=== PATIENT | female | born 1995 | race Caucasian/White ===

== ENCOUNTER 2017-03-03 11:15 | Day surgery (SDC) | payer MEDICAID ==
[2017-02-28 10:29] VITALS: BMI 25.0
[~2017-03-03 11:15] MED LIST: LACTATED RINGERS 1,000 ML IV SCH
[2017-03-03] MEDS ORDERED: LIDOCAINE 1% 20 ML VIAL (10MG/ML) FOR IV START INTRADERMA ONE (12:15)
[2017-03-03 12:17] VITALS: TEMP 97.8
[2017-03-03] MEDS ORDERED: PROPOFOL 10 MG/ML 20 ML VIAL IV ONE (12:18)
[2017-03-03 13:07] VITALS: BP 115/73; PULSE 65; RESP 18
--- NOTE | 2017-03-03 13:12 | P.PCN ---
Date of Procedure: 03/03/17 Preoperative Diagnosis: abdominal pain and diarrhea Postoperative Diagnosis: same mild gastritis Procedure(s) Performed: EGD with multiple biopsies colonoscopy with multiple biopsies Anesthesia: MAC Surgeon: Vitaly Kerr Pathology: other (Multiple biopsies of duodenum gastric antrum terminal ileum descending colon) Condition: stable Disposition: same day Description of Procedure: Patient was brought into the Endo suite remained in the left lateral decubitus position underwent sedation per department of anesthesia timeout was performed correct patient correct procedure correct site was verified. The endoscope was advanced down the oropharynx into the esophagus under direct visualization down into the stomach first part second portion of the duodenum. The scope was insufflated withdrawn being sure to inspect the first and second part of the duodenum which were without abnormality biopsies taken of the first and second portion of the duodenum. The scope was then withdrawn into the gastric antrum mild gastritis is noted biopsy of this was taken the scope was retroflexed and abnormalities were noted. The scope was then slowly withdrawn GE junction was visualized no other maladies are noted. The scope was then completely withdrawn colonoscope was then placed through the rectum to the cecum with ease the terminal ileum was intubated and biopsies of the terminal ileum were taken. The scope was then slowly withdrawn from the cecum being sure to visualize all nagel on the way out biopsy of the descending colon was taken there is no other abnormality seen. The scope was retroflexed in the rectum no abnormalities are seen. Patient tolerated the procedure well there is no apparent complications Plan - Discharge Summary New Discharge Prescriptions: No Action No Known Home Medications [No Known Home Medications] Discharge Medication List No Known Home Medications [No Known Home Medications] 02/28/17 [History] Follow up Appointment(s)/Referral(s): Vitaly Kerr DO [Doctor of Osteopathic Medicine] - As Needed Patient Instructions/Handouts: *[facility] - (Anesthesia) Endoscopy Discharge Instructions, Colonoscopy (DC), Upper Endoscopy (DC)
== END 2017-03-03 13:19 | disposition home or self-care (01) ==
LOC: ORWHC2ENDO 11:15
PROVIDERS: ATTEND Student in an Organized Health Care Education/Training Program
DX: K29.50 Unspecified chronic gastritis without bleeding (principal); R19.7 Diarrhea, unspecified; R19.4 Change in bowel habit; K21.9 Gastro-esophageal reflux disease without esophagitis
CPT/HCPCS: 81025; 88305; 88342; 45380; 43239; J2704

== ENCOUNTER 2017-07-01 11:18 | Emergency (ER) | payer MEDICAID ==
--- NOTE | 2017-07-01 11:56 | ED ---
GI Bleed HPI - General Chief complaint: GI Bleed Stated complaint: RECTAL BLEEDING Time Seen by Provider: 07/01/17 11:30 Source: patient, RN notes reviewed Mode of arrival: ambulatory Limitations: no limitations - History of Present Illness Initial comments: This is a 21-year-old female with a benign past medical history who states that she started developing bright red blood per rectum with some clots. She states she has some similar to this back in February of last year she had EGD and colonoscopy done that was negative. She does not think she has hemorrhoids she just finished her menstrual period several days ago. She states that look like. Blood but really she was not having any vaginal bleeding. She has no fevers chills nausea vomiting sweats or other symptoms at this time she states she did have some mild lower abdominal discomfort very minimal. 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 Of note she states she has lost about 100 pounds last year because she does not feel like eating very much also she states she's been seemingly bruising easier just from leaning against machinery that she operates at work. complaint: blood on toilet paper, gross hematochezia - Related Data Home Medications Medication Instructions Recorded Confirmed FLUoxetine HCL [PROzac] 40 mg PO DAILY 07/01/17 07/01/17 Norgestimate-Ethinyl Estradiol 1 tab PO DAILY 07/01/17 07/01/17 [Ortho Tri-Cyclen 28 Tablet] Previous Rx's Medication Instructions Recorded Hydrocortisone [Anusol-Hc] 1 applic RECTAL BID #30 gm 07/01/17 Allergies Allergy/AdvReac Type Severity Reaction Status Date / Time No Known Allergies Allergy Verified 07/01/17 11:28 Review of Systems ROS Statement: Those systems with pertinent positive or pertinent negative responses have been documented in the HPI. ROS Other: All systems not noted in ROS Statement are negative. Past Medical History Past Medical History: No Reported History, Skin Disorder Additional Past Medical History / Comment(s): HAS BEEN HAVING CHRONIC ABD. PAIN AND HAS LOST 90 POUNDS OVER THE LAST YEAR WITHOUT TRYING TO. PSORIASIS History of Any Multi-Drug Resistant Organisms: None Reported Past Surgical History: No Surgical Hx Reported Additional Past Surgical History / Comment(s): colonoscopy Past Anesthesia/Blood Transfusion Reactions: Motion Sickness Additional Past Anesthesia/Blood Transfusion Reaction / Comment(s): NO PRIOR SX HX Past Psychological History: No Psychological Hx Reported Smoking Status: Current every day smoker Past Alcohol Use History: Occasional Past Drug Use History: None Reported - Past Family History Mother Family Medical History: No Reported History General Exam - General Exam Comments Initial Comments: This is a well-developed well-nourished awake alert oriented x 3 female Limitations: no limitations General appearance: alert, in no apparent distress Head exam: Present: atraumatic, normocephalic, normal inspection Eye exam: Present: normal appearance, PERRL, EOMI. Absent: scleral icterus, conjunctival injection, periorbital swelling ENT exam: Present: normal exam, mucous membranes moist Neck exam: Present: normal inspection. Absent: tenderness, meningismus, lymphadenopathy Respiratory exam: Present: normal lung sounds bilaterally. Absent: respiratory distress, wheezes, rales, rhonchi, stridor Cardiovascular Exam: Present: regular rate, normal rhythm, normal heart sounds. Absent: systolic murmur, diastolic murmur, rubs, gallop, clicks GI/Abdominal exam: Present: soft, normal bowel sounds. Absent: distended, tenderness, guarding, rebound, rigid, bruit, pulsatile mass, hernia Rectal exam: Present: hemorrhoids, tenderness (Tenderness at the area of the above-mentioned hemorrhoid), other (There is a very small bleeding hemorrhoid at approximately the 6:00 o'clock location). Absent: decreased rectal tone, black stool, bloody stool, fecal impaction, mass Extremities exam: Present: normal inspection, full ROM, normal capillary refill , other (Normally inspection except for some bruising noted to the lower extremities bilaterally and anteriorly consistent with a history given by the patient. Various stages of healing). Absent: tenderness, pedal edema, joint swelling, calf tenderness Back exam: Present: normal inspection Neurological exam: Present: alert, oriented X3, CN II-XII intact Psychiatric exam: Present: normal affect, normal mood Skin exam: Present: warm, dry, intact, normal color. Absent: rash Course Vital Signs 07/01/17 11:21 Temperature 98.4 F Pulse Rate 63 Respiratory 20 Rate Blood Pressure 123/64 O2 Sat by Pulse 100 Oximetry - Reevaluation(s) Reevaluation #1: 07/01/17 11:56 The entire exam was done with a female nurse, Eduardo, saravanan Medical Decision Making - Medical Decision Making I did review the lab work with the patient and did discuss the findings with her the presentation is consistent with a bleeding hemorrhoid. We placed on appropriate medication she is advised regarding sitz baths. She'll follow-up with her doctor and return when necessary - Lab Data Result diagrams: 07/01/17 11:35 07/01/17 11:35 Lab Results 07/01/17 07/01/17 07/01/17 Range/Units 11:35 11:35 11:35 WBC 7.7 (3.8-10.6) k/uL RBC 4.97 (3.80-5.40) m/uL Hgb 14.1 (11.4-16.0) gm/dL Hct 41.8 (34.0-46.0) % MCV 84.3 (80.0-100.0) fL MCH 28.4 (25.0-35.0) pg MCHC 33.7 (31.0-37.0) g/dL RDW 12.5 (11.5-15.5) % Plt Count 257 (150-450) k/uL Neutrophils % 63 % Lymphocytes % 29 % Monocytes % 4 % Eosinophils % 1 % Basophils % 0 % Neutrophils # 4.8 (1.3-7.7) k/uL Lymphocytes # 2.3 (1.0-4.8) k/uL Monocytes # 0.3 (0-1.0) k/uL Eosinophils # 0.1 (0-0.7) k/uL Basophils # 0.0 (0-0.2) k/uL PT 10.6 (9.0-12.0) sec INR 1.1 (<1.2) APTT 24.8 (22.0-30.0) sec Sodium 139 (137-145) mmol/L Potassium 4.0 (3.5-5.1) mmol/L Chloride 105 (98-107) mmol/L Carbon Dioxide 26 (22-30) mmol/L Anion Gap 8 mmol/L BUN 22 H (7-17) mg/dL Creatinine 0.58 (0.52-1.04) mg/dL Est GFR (CKD-EPI)AfAm >90 (>60 ml/min/1.73 sqM) Est GFR (CKD-EPI)NonAf >90 (>60 ml/min/1.73 sqM) Glucose 105 H (74-99) mg/dL Calcium 9.4 (8.4-10.2) mg/dL Magnesium 2.0 (1.6-2.3) mg/dL Total Bilirubin 0.4 (0.2-1.3) mg/dL AST 20 (14-36) U/L ALT 23 (9-52) U/L Alkaline Phosphatase 62 (38-126) U/L Total Protein 7.1 (6.3-8.2) g/dL Albumin 4.1 (3.5-5.0) g/dL Amylase 45 (30-110) U/L Lipase 99 (23-300) U/L TSH 1.390 (0.465-4.680) mIU/L Disposition Clinical Impression: Bleeding hemorrhoid Disposition: HOME SELF-CARE Condition: Good Instructions: Hemorrhoids (ED) Prescriptions: Hydrocortisone [Anusol-Hc] 1 applic RECTAL BID #30 gm Referrals: Myrtle Gutierrez MD [Primary Care Provider] - 1-2 days
[2017-07-01 12:04] LABS: Basophils % (A) 0 %; Eosinophils # (A) 0.1 k/uL (0-0.7); Eosinophils % (A) 1 %; HCT 41.8 % (34.0-46.0); HGB 14.1 gm/dL (11.4-16.0); Lymphocytes # (A) 2.3 k/uL (1.0-4.8); Lymphocytes % (A) 29 %; MCH 28.4 pg (25.0-35.0); MCHC 33.7 g/dL (31.0-37.0); MCV 84.3 fL (80.0-100.0); Monocytes # (A) 0.3 k/uL (0-1.0); Monocytes % (A) 4 %; Neutrophils # (A) 4.8 k/uL (1.3-7.7); Neutrophils % (A) 63 %; Platelet Count 257 k/uL (150-450); RBC 4.97 m/uL (3.80-5.40); RDW 12.5 % (11.5-15.5); WBC 7.7 k/uL (3.8-10.6)
[2017-07-01 12:11] LABS: INR 1.1 (<1.2); Partial Thromboplastin Time 24.8 sec (22.0-30.0); Prothrombin Time 10.6 sec (9.0-12.0)
[2017-07-01 12:16] LABS: ALT 23 U/L (9-52); AST 20 U/L (14-36); Albumin 4.1 g/dL (3.5-5.0); Alkaline Phosphatase 62 U/L (38-126); Amylase 45 U/L (30-110); Anion Gap 8 mmol/L; Blood Urea Nitrogen 22 mg/dL (7-17); Calcium 9.4 mg/dL (8.4-10.2); Carbon Dioxide 26 mmol/L (22-30); Chloride 105 mmol/L (98-107); Glucose 105 mg/dL (74-99); Lipase 99 U/L (23-300); Sodium 139 mmol/L (137-145); Total Bilirubin 0.4 mg/dL (0.2-1.3); Total Protein 7.1 g/dL (6.3-8.2)
[2017-07-01 13:05] VITALS: BP 132/69; PULSE 69; RESP 18; TEMP 97.7
== END 2017-07-01 13:05 | disposition home or self-care (01) ==
LOC: EC 11:18
DX: K64.9 Unspecified hemorrhoids (principal); S80.12XD Contusion of left lower leg, subsequent encounter; S80.11XD Contusion of right lower leg, subsequent encounter; F17.200 Nicotine dependence, unspecified, uncomplicated; Z79.3 Long term (current) use of hormonal contraceptives; Z79.899 Other long term (current) drug therapy; X50.1XXD Overexertion from prolonged static or awkward postures, subsequent encounter
CPT/HCPCS: 36415; 80053; 82150; 83690; 83735; 84443; 85025; 85610; 85730; 99284

== ENCOUNTER 2017-07-04 13:52 | Emergency (ER) | payer MEDICAID ==
[2017-07-04 14:40] LABS: Basophils % (A) 0 %; Eosinophils # (A) 0.1 k/uL (0-0.7); Eosinophils % (A) 1 %; HCT 41.1 % (34.0-46.0); HGB 13.9 gm/dL (11.4-16.0); Lymphocytes # (A) 1.2 k/uL (1.0-4.8); Lymphocytes % (A) 9 %; MCH 28.7 pg (25.0-35.0); MCHC 33.9 g/dL (31.0-37.0); MCV 84.7 fL (80.0-100.0); Monocytes # (A) 0.6 k/uL (0-1.0); Monocytes % (A) 5 %; Neutrophils # (A) 11.4 k/uL (1.3-7.7); Neutrophils % (A) 85 %; Platelet Count 241 k/uL (150-450); RBC 4.85 m/uL (3.80-5.40); RDW 12.4 % (11.5-15.5); WBC 13.4 k/uL (3.8-10.6)
[2017-07-04 14:48] LABS: ALT 25 U/L (9-52); AST 23 U/L (14-36); Albumin 4.5 g/dL (3.5-5.0); Alkaline Phosphatase 69 U/L (38-126); Amylase 35 U/L (30-110); Anion Gap 9 mmol/L; Blood Urea Nitrogen 20 mg/dL (7-17); Calcium 9.6 mg/dL (8.4-10.2); Carbon Dioxide 27 mmol/L (22-30); Chloride 100 mmol/L (98-107); Glucose 87 mg/dL (74-99); Lipase 44 U/L (23-300); Potassium 3.9 mmol/L (3.5-5.1); Sodium 136 mmol/L (137-145); Total Bilirubin 1.3 mg/dL (0.2-1.3); Total Protein 7.5 g/dL (6.3-8.2)
--- NOTE | 2017-07-04 15:30 | ED ---
General Adult HPI - General Chief complaint: Abdominal Pain Stated complaint: sore throat/abdominal pain Time Seen by Provider: 07/04/17 15:01 Source: patient, RN notes reviewed Mode of arrival: ambulatory Limitations: no limitations - History of Present Illness Initial comments: Comfortably appearing 21-year-old female presents to the emergency department for a chief complaint of sore throat and abdominal pain. Patient states she noticed her ears throat was sore this morning and that her tonsils were enlarged. She states she went to work and couple hours later she started having diffuse abdominal pain. Patient denies any cough, congestion, or shortness of breath. She admits to ear pain but states this is probably due to her gauges in the earlobes. Patient states she has been drinking fluids. Patient denies any vomiting or diarrhea but states she has been slightly nauseous intermittently. Patient is not nauseous at the time of exam. She describes her abdominal pain as a diffuse sharp and crampy pain. Patient states she had a very small hard bowel movement this morning. Patient states she also has some pain in her back bilaterally that has progressed throughout the day. Patient has a history of chronic abdominal pain over the past 2 years along with a 90 pound weight loss in the past year. She has had an EGD and colonoscopy both with biopsies in February 2017 because of this. No abnormal findings on these procedures and she was diagnosed with mild gastritis. Patient states she is not sure if she has had UTIs or kidney stones in the past. - Related Data Home Medications Medication Instructions Recorded Confirmed FLUoxetine HCL [PROzac] 40 mg PO DAILY 07/01/17 07/04/17 Norgestimate-Ethinyl Estradiol 1 tab PO DAILY 07/04/17 07/04/17 [Trinessa Tablet] Previous Rx's Medication Instructions Recorded Amoxicillin 875 mg PO Q12HR #20 tablet 07/04/17 Allergies Allergy/AdvReac Type Severity Reaction Status Date / Time No Known Allergies Allergy Verified 07/04/17 15:07 Review of Systems ROS Statement: Those systems with pertinent positive or pertinent negative responses have been documented in the HPI. ROS Other: All systems not noted in ROS Statement are negative. Past Medical History Past Medical History: No Reported History, Skin Disorder Additional Past Medical History / Comment(s): HAS BEEN HAVING CHRONIC ABD. PAIN AND HAS LOST 90 POUNDS OVER THE LAST YEAR WITHOUT TRYING TO. PSORIASIS History of Any Multi-Drug Resistant Organisms: None Reported Past Surgical History: No Surgical Hx Reported Additional Past Surgical History / Comment(s): colonoscopy Past Anesthesia/Blood Transfusion Reactions: Motion Sickness Additional Past Anesthesia/Blood Transfusion Reaction / Comment(s): NO PRIOR SX HX Past Psychological History: Anxiety, Depression Smoking Status: Current every day smoker Past Alcohol Use History: Occasional Past Drug Use History: None Reported - Past Family History Mother Family Medical History: No Reported History General Exam Limitations: no limitations Eye exam: Present: normal appearance, PERRL, EOMI. Absent: scleral icterus, conjunctival injection, periorbital swelling ENT exam: Present: mucous membranes moist, TM's normal bilaterally, normal external ear exam (patient has gauges present in BL earlobes). Absent: normal oropharynx (Mild exudates noted on tonsils bilaterally) Neck exam: Present: full ROM, lymphadenopathy (Mild submandibular lymphadenopathy with minimal tenderness.). Absent: meningismus Respiratory exam: Present: normal lung sounds bilaterally. Absent: respiratory distress, wheezes, rales, rhonchi, stridor Cardiovascular Exam: Present: regular rate, normal rhythm, normal heart sounds. Absent: systolic murmur, diastolic murmur, rubs, gallop, clicks GI/Abdominal exam: Present: soft, tenderness (Tenderness to palpation in the left lower quadrant.), normal bowel sounds. Absent: distended, guarding, rebound, rigid Back exam: Present: full ROM, CVA tenderness (L) (Mild left CVA tenderness) Neurological exam: Present: alert, oriented X3, CN II-XII intact Psychiatric exam: Present: normal affect, normal mood Course Vital Signs 07/04/17 07/04/17 14:07 16:16 Temperature 98.6 F Pulse Rate 71 82 Respiratory 17 18 Rate Blood Pressure 119/66 119/64 O2 Sat by Pulse 100 99 Oximetry Medical Decision Making - Medical Decision Making 21-year-old female presents the emergency department today for a chief complaint of abdominal pain and sore throat. The symptoms began this morning. Vital signs all within normal limits. No fever time of presentation. On exam tonsils appear enlarged with mild exudate. No other abnormalities noted on ENT exam. Patient denies cough congestion or fevers. Patient also has crampy sharp abdominal pain diffusely throughout her abdomen. Patient has a history of chronic abdominal pain and an EGD and colonoscopy were done February 2017 and were found to be normal. Exam reveals tenderness to palpation in the left lower quadrant and slight left CVA tenderness. Bowel sounds within normal limits. Vitals are stable: Temp 98.6 pulse 71 respirations 17 and blood pressure 119/66 pulse ox 100 on room air CBC revealed a mild white blood cell count elevation of 13.4 neutrophils 11.4. CMP results unremarkable. Urine hCG detected. KUB showed no acute abnormalities. Patient was positive for group A strep. Patient was educated that abdominal pain could be due to strep throat. However On reevaluation patient complains of pain radiating from the back. And does have RBCs on UA. CT noncontrast was ordered. CT showed no significant abnormality of the kidneys or other organs. A right ovarian cystic lesion that is slightly smaller than prior exam is noted. On reevaluation after CT patient states abdominal pain does feel much better. She states she felt her abdomen "was moving around vociferously down" but now it feels much better. Her back feels better as well. She will be given amoxicillin to treat the strep throat. She will follow up with primary care in 1-2 days for abdominal pain. She will return to the emergency department if she notices abdominal pain worsening. - Lab Data Result diagrams: 07/04/17 14:23 07/04/17 14:23 Lab Results 07/04/17 07/04/17 07/04/17 Range/Units 14:23 14:23 15:10 WBC 13.4 H (3.8-10.6) k/uL RBC 4.85 (3.80-5.40) m/uL Hgb 13.9 (11.4-16.0) gm/dL Hct 41.1 (34.0-46.0) % MCV 84.7 (80.0-100.0) fL MCH 28.7 (25.0-35.0) pg MCHC 33.9 (31.0-37.0) g/dL RDW 12.4 (11.5-15.5) % Plt Count 241 (150-450) k/uL Neutrophils % 85 % Lymphocytes % 9 % Monocytes % 5 % Eosinophils % 1 % Basophils % 0 % Neutrophils # 11.4 H (1.3-7.7) k/uL Lymphocytes # 1.2 (1.0-4.8) k/uL Monocytes # 0.6 (0-1.0) k/uL Eosinophils # 0.1 (0-0.7) k/uL Basophils # 0.0 (0-0.2) k/uL Sodium 136 L (137-145) mmol/L Potassium 3.9 (3.5-5.1) mmol/L Chloride 100 (98-107) mmol/L Carbon Dioxide 27 (22-30) mmol/L Anion Gap 9 mmol/L BUN 20 H (7-17) mg/dL Creatinine 0.62 (0.52-1.04) mg/dL Est GFR (CKD-EPI)AfAm >90 (>60 ml/min/1.73 sqM) Est GFR (CKD-EPI)NonAf >90 (>60 ml/min/1.73 sqM) Glucose 87 (74-99) mg/dL Calcium 9.6 (8.4-10.2) mg/dL Total Bilirubin 1.3 (0.2-1.3) mg/dL AST 23 (14-36) U/L ALT 25 (9-52) U/L Alkaline Phosphatase 69 (38-126) U/L Total Protein 7.5 (6.3-8.2) g/dL Albumin 4.5 (3.5-5.0) g/dL Amylase 35 (30-110) U/L Lipase 44 (23-300) U/L Urine Color Yellow Urine Appearance Cloudy H (Clear) Urine pH 5.5 (5.0-8.0) Ur Specific [place] 1.025 (1.001-1.035) Urine Protein 1+ H (Negative) Urine Glucose (UA) Negative (Negative) Urine Ketones 1+ H (Negative) Urine Blood Negative (Negative) Urine Nitrite Negative (Negative) Urine Bilirubin Negative (Negative) Urine Urobilinogen 2.0 (<2.0) mg/dL Ur Leukocyte Esterase Moderate H (Negative) Urine RBC 10 H (0-5) /hpf Ur Squamous Epith Cells 29 H (0-4) /hpf Urine Bacteria Rare H (None) /hpf Urine Mucus Many H (None) /hpf Urine HCG, Qual (Not Detectd) Group A Strep Rapid (Negative) 07/04/17 07/04/17 Range/Units 15:10 15:30 WBC (3.8-10.6) k/uL RBC (3.80-5.40) m/uL Hgb (11.4-16.0) gm/dL Hct (34.0-46.0) % MCV (80.0-100.0) fL MCH (25.0-35.0) pg MCHC (31.0-37.0) g/dL RDW (11.5-15.5) % Plt Count (150-450) k/uL Neutrophils % % Lymphocytes % % Monocytes % % Eosinophils % % Basophils % % Neutrophils # (1.3-7.7) k/uL Lymphocytes # (1.0-4.8) k/uL Monocytes # (0-1.0) k/uL Eosinophils # (0-0.7) k/uL Basophils # (0-0.2) k/uL Sodium (137-145) mmol/L Potassium (3.5-5.1) mmol/L Chloride (98-107) mmol/L Carbon Dioxide (22-30) mmol/L Anion Gap mmol/L BUN (7-17) mg/dL Creatinine (0.52-1.04) mg/dL Est GFR (CKD-EPI)AfAm (>60 ml/min/1.73 sqM) Est GFR (CKD-EPI)NonAf (>60 ml/min/1.73 sqM) Glucose (74-99) mg/dL Calcium (8.4-10.2) mg/dL Total Bilirubin (0.2-1.3) mg/dL AST (14-36) U/L ALT (9-52) U/L Alkaline Phosphatase (38-126) U/L Total Protein (6.3-8.2) g/dL Albumin (3.5-5.0) g/dL Amylase (30-110) U/L Lipase (23-300) U/L Urine Color Urine Appearance (Clear) Urine pH (5.0-8.0) Ur Specific [place] (1.001-1.035) Urine Protein (Negative) Urine Glucose (UA) (Negative) Urine Ketones (Negative) Urine Blood (Negative) Urine Nitrite (Negative) Urine Bilirubin (Negative) Urine Urobilinogen (<2.0) mg/dL Ur Leukocyte Esterase (Negative) Urine RBC (0-5) /hpf Ur Squamous Epith Cells (0-4) /hpf Urine Bacteria (None) /hpf Urine Mucus (None) /hpf Urine HCG, Qual Not Detected (Not Detectd) Group A Strep Rapid Positive A (Negative) Disposition Clinical Impression: Strep throat Disposition: HOME SELF-CARE Condition: Good Instructions: Strep Throat (ED) Additional Instructions: Please return to the emergency department if abdominal pain or other symptoms worsen. Please follow up with primary care provider in 1-2 days for abdominal pain and strep throat. Please take amoxicillin as directed and finish dose. Prescriptions: Amoxicillin 875 mg PO Q12HR #20 tablet Referrals: Myrtle Gutierrez MD [Primary Care Provider] - 1-2 days Time of Disposition: 17:20
[2017-07-04] MEDS ORDERED: SODIUM CHLORIDE 0.9% 1,000 ML IV STA (15:41)
[2017-07-04 15:44] LABS: Appearance,Urine Cloudy (Clear); Bacteria,Urine Rare /hpf; Bilirubin,Urine Negative (Negative); Blood,Urine Negative (Negative); Color,Urine Yellow; Glucose,Urine (UA) Negative (Negative); Ketones,Urine 1+ (Negative); Leukocyte Esterase,Urine Moderate (Negative); Mucus,Urine Many /hpf; Nitrite,Urine Negative (Negative); PH, Urine 5.5 (5.0-8.0); Protein,Urine 1+ (Negative); RBC,Urine 10 /hpf (0-5); Specific Gravity,Urine 1.025 (1.001-1.035); Squamous Epithelial Cell,Urine 29 /hpf (0-4)
--- NOTE | 2017-07-04 16:13 | XR ---
Abdomen HISTORY: Pain Frontal view of the abdomen on 2 images Lung bases are clear. There is no evident bowel obstruction or pneumoperitoneum. No pathologic calcif ication. There is a slight spinal curvature which could be positional. IMPRESSION: No significant abnormality is evident
--- NOTE | 2017-07-04 17:04 | CT ---
EXAMINATION TYPE: CT abdomen pelvis wo con DATE OF EXAM: 07/04/2017 COMPARISON: Prior exam 07/28/2007 HISTORY: Generalized abdominal and back pain. CT DLP: 205.7 mGycm Automated exposure control for dose reduction was used. TECHNIQUE: Helical acquisition of images from the lung bases through the pelvis. FINDINGS: Lack of contrast may compromise sensitivity of the exam. LUNG BASES: No significant abnormality is appreciated. AORTA: No significant abnormality is appreciataed. LIVER/GB: No significant abnormality is appreciated. PANCREAS: No significant abnormality is seen. SPLEEN: No significant abnormality is seen. ADRENALS: No significant abnormality is seen. KIDNEYS: No significant abnormality is seen. REPRODUCTIVE ORGANS: Right ovarian cystic lesion may be slightly smaller than on prior exam, direct measurement is difficult to make with certainty. URINARY BLADDER: No significant abnormality is seen. BOWEL: No significant abnormality is seen. No evident appendicitis. FREE AIR: No Free Air is visible. ASCITES: None visible. PELVIC ADENOPATHY: None visualized. RETROPERITONEAL ADENOPATHY: No Retroperitoneal Adenopathy visible. OSSEOUS STRUCTURES: No significant abnormality is seen. IMPRESSION: CYSTIC RIGHT ADNEXAL LESION DESCRIBED.
[2017-07-04 17:25] VITALS: BP 116/58; PULSE 72; RESP 16; TEMP 99.2
== END 2017-07-04 17:55 | disposition home or self-care (01) ==
LOC: EC 13:52
DX: J02.0 Streptococcal pharyngitis (principal); D72.829 Elevated white blood cell count, unspecified; R79.89 Other specified abnormal findings of blood chemistry; G89.29 Other chronic pain; R10.84 Generalized abdominal pain; R11.0 Nausea; M54.9 Dorsalgia, unspecified; F32.9 Major depressive disorder, single episode, unspecified; F41.9 Anxiety disorder, unspecified; F17.200 Nicotine dependence, unspecified, uncomplicated; Z79.3 Long term (current) use of hormonal contraceptives; Z79.899 Other long term (current) drug therapy
CPT/HCPCS: 36415; 74018; 74176; 80053; 81001; 81025; 82150; 83690; 85025; 87430; 96360; 99284

== ENCOUNTER → 2018-02-27 | Outpatient (CLI) | payer MEDICAID ==
--- NOTE | 2018-02-27 14:21 | US ---
EXAMINATION TYPE: US abdomen complete DATE OF EXAM: 02/27/2018 COMPARISON: CT 07/04/2017, prior ultrasound 08/06/2015 CLINICAL HISTORY: R10.9 Unspecified abdominal pain. Epigastric pain. Bloating. EXAM MEASUREMENTS: Liver Length: 14.8 cm Gallbladder Wall: 0.2 cm CBD: 0.2 cm CHD: 0.2 cm Spleen: 10.0 cm Right Kidney: 9.6 x 4.5 x 3.7 cm Left Kidney: 9.3 x 5.1 x 5.2 cm Pancreas: wnl Liver: wnl Gallbladder: wnl Evidence for sonographic Schaffer's sign: neg CBD: wnl CHD: wnl Spleen: wnl Right Kidney: wnl Left Kidney: wnl Upper IVC: wnl Abd Aorta: no AAA identified There is no ascites. Cortical medullary differentiation maintained within the kidneys. IMPRESSION: No significant abnormality.
== END | disposition home or self-care (01) ==
LOC: RADUSWWP 13:27
PROVIDERS: ATTEND Internal Medicine Geriatric Medicine
DX: R10.9 Unspecified abdominal pain (principal)
CPT/HCPCS: 76700

== ENCOUNTER → 2018-03-06 | Outpatient (CLI) | payer MEDICAID ==
--- NOTE | 2018-03-07 07:18 | NM ---
EXAMINATION TYPE: NM hepatobiliary w EF DATE OF EXAM: 03/06/2018 COMPARISON: Abdominal ultrasound dated 02/27/2018 HISTORY: Abdominal pain TECHNIQUE: After the intravenous administration of 5.01 mCi Tc 99m Mebrofenin hepatobiliary scintigra phy is performed. Immediate images post injection. FINDINGS: There is satisfactory initial accumulation of tracer by the liver. The gallbladder is visualized wit hin 26 minutes. The small bowel activity is noted within 12 minutes. At one hour 8 ounces of oral e nsure plus is given to mimic CCK and gallbladder ejection fraction is calculated at 57 %, in the norm al range. Therefore there is no scintigraphic evidence of cystic or common bile duct obstruction to suggest acute cholecystitis or gallbladder dyskinesia. IMPRESSION: No scintigraphic evidence of acute cholecystitis, chronic cholecystitis or biliary dyskin esia.
== END ==
LOC: RADNMMAIN 13:23
PROVIDERS: ATTEND Nurse Practitioner Family
DX: R10.9 Unspecified abdominal pain (principal)
CPT/HCPCS: 78226; A9537

== ENCOUNTER → 2018-08-02 | Outpatient (CLI) | payer MEDICAID ==
--- NOTE | 2018-08-02 08:45 | CT ---
EXAMINATION TYPE: CT brain wo con DATE OF EXAM: 08/02/2018 COMPARISON: None. HISTORY: lump by right yazidi/headache/fall injury [address] DLP: 963.6 mGycm. Automated Exposure Control for Dose Reduction was Utilized. TECHNIQUE: CT scan of the head is performed without contrast. FINDINGS: There is no acute intracranial hemorrhage, mass effect, or midline shift identified. The ventricles and sulci are within normal limits in size. Blair-white matter differentiation is maintain ed. The globes are intact and the visualized sinuses are clear. The calvarium is intact. IMPRESSION: No acute intracranial hemorrhage, mass effect, or midline shift is seen.
== END | disposition home or self-care (01) ==
LOC: RADCTMAIN 07:44
PROVIDERS: ATTEND Internal Medicine
DX: G44.311 Acute post-traumatic headache, intractable (principal)
CPT/HCPCS: 70450

== ENCOUNTER 2019-10-18 18:56 | Emergency (ER) | payer MEDICAID ==
[2019-10-18 19:01] VITALS: RESP 16
[2019-10-18] MEDS ORDERED: ONDANSETRON ODT 4 MG TAB PO STA (19:28)
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
[2019-10-18] MEDS ORDERED: metroNIDAZOLE 500 MG TAB PO STA (20:00)
[2019-10-18] MEDS ORDERED: AZITHROMYCIN 250 MG TAB PO STA (20:00)
[2019-10-18] MEDS ORDERED: cefTRIAXone 250 MG VIAL IM STA (20:00)
[2019-10-18 21:03] VITALS: BP 155/81; PULSE 82; TEMP 98
== END 2019-10-18 21:02 | disposition home or self-care (01) ==
LOC: EC 18:56
DX: N89.8 Other specified noninflammatory disorders of vagina (principal); R11.2 Nausea with vomiting, unspecified; R52 Pain, unspecified; F17.200 Nicotine dependence, unspecified, uncomplicated; F41.9 Anxiety disorder, unspecified; F32.9 Major depressive disorder, single episode, unspecified; Z79.3 Long term (current) use of hormonal contraceptives
CPT/HCPCS: 81025; 99284

== ENCOUNTER → 2020-05-05 | Outpatient (CLI) | payer MEDICAID ==
--- NOTE | 2020-05-06 07:38 | XR ---
Bilateral ankles HISTORY: Pain for one month 3 views of each ankle submitted There is soft tissue swelling noted. Bone mineralization, joint spaces and alignment are maintained. Plantar calcaneal spurs are present. No fracture or dislocation. IMPRESSION: Soft tissue swelling and plantar spurs.
== END | disposition home or self-care (01) ==
LOC: RAD 17:38
PROVIDERS: ATTEND Internal Medicine
DX: M25.572 Pain in left ankle and joints of left foot (principal); M25.571 Pain in right ankle and joints of right foot; M79.89 Other specified soft tissue disorders

== ENCOUNTER → 2020-10-30 | Outpatient (CLI) | payer MEDICAID ==
--- NOTE | 2020-10-30 07:44 | US ---
EXAMINATION TYPE: US abdomen complete DATE OF EXAM: 10/30/2020 COMPARISON: 02/27/2018 CLINICAL HISTORY: R14.0 Abdominal Distension. patient states hard lump in midline abd, distension, ga seous EXAM MEASUREMENTS: Liver Length: 15.9 cm Gallbladder Wall: 0.2 cm CBD: 0.5 cm Spleen: 12.3 cm Right Kidney: 9.7 x 4.3 x 4.2 cm Left Kidney: 9.0 x 3.5 x 4.7 cm Pancreas: wnl Liver: wnl Gallbladder: wnl Evidence for sonographic Schaffer's sign: no CBD: wnl Spleen: wnl Right Kidney: wnl Left Kidney: wnl Upper IVC: wnl Abd Aorta: wnl The liver is homogenous. The intrahepatic portion of the IVC and proximal abdominal aorta are within normal limits. There is no evidence of cholelithiasis. Common bile duct is unremarkable. The visu alized portions of the pancreas are homogenous. The spleen is unremarkable. Kidneys are symmetric a nd free of hydronephrosis. No renal lesions are seen. IMPRESSION: Unremarkable abdomen.
== END | disposition home or self-care (01) ==
LOC: RADUSWWP 07:00
PROVIDERS: ATTEND Internal Medicine
DX: R14.0 Abdominal distension (gaseous) (principal)
CPT/HCPCS: 76700